=== PATIENT | male | born 1980 | race Caucasian/White ===

== ENCOUNTER 2022-07-02 08:34 | Day surgery (SDC) | payer OTHER ==
[2022-06-26 15:53] LABS: BASOPHILS % (AUTO) 0.5 % (0-1); EOSINOPHILS % (AUTO) 0.3 % (0-6); LYMPHOCYTES # (AUTO) 1.4 X10'3 (1.1-4.8); LYMPHOCYTES % (AUTO) 14.9 % (21-51); MEAN CORPUSCULAR VOLUME 88.7 FL (78-98); MEAN PLATELET VOLUME 7.5 FL (7.4-10.4); MONOCYTES # (AUTO) 0.7 X10'3 (0-0.9); MONOCYTES % (AUTO) 7.7 % (2-12); NEUTROPHILS # (AUTO) 7.1 X10'3 (1.8-7.7); NEUTROPHILS % (AUTO) 76.6 % (42-75); PRE OP HEMATOCRIT 45.4 % (42.0-52.0); PRE OP HEMOGLOBIN 15.9 g/dL (14.0-17.9); PRE OP PLATELET COUNT 233 X10'3 (140-440); RED BLOOD COUNT 5.12 X10'6 (4.70-6.10); RED CELL DISTRIBUTION WIDTH 13.1 % (11.5-14.5)
[2022-06-26 16:22] LABS: ALBUMIN 4.4 G/DL (3.4-5.0); ALBUMIN/GLOBULIN RATIO 1.5 (1.1-1.5); ALKALINE PHOSPHATASE 52 IU/L (46-116); BLOOD UREA NITROGEN 17 MG/DL (7-18); BUN/CREATININE RATIO 12.1 (5.4-32.0); CHLORIDE 105 MMOL/L (99-107); PRE OP ALT 52 U/L (30-65); PRE OP ANION GAP 6 (8-16); PRE OP AST 18 U/L (10-37); PRE OP BILIRUB, TOTAL 0.6 MG/DL (0.0-1.0); PRE OP GLUCOSE 101 MG/DL (70-104); PRE OP SODIUM 139 MMOL/L (135-145); TOTAL PROTEIN 7.4 G/DL (6.4-8.2); eGFR 56 ML/MIN
[~2022-07-02] VITALS: Ht 188 cm; Wt 81.2 kg
[2022-07-02] VITALS (9 sets, daily range): BP systolic 129–143; BP diastolic 79–98
[~2022-07-02 08:34] MED LIST: NO HOME MEDS; ceFAZolin inj. 2,000 MG in dextrose 5%-water 100 ML IV ONE; famotidine 20mg tablet PO ONE; ringers solution, lacted 1,000 ML IV SCH
[2022-07-02] MEDS ORDERED: LIDOcaine 1% 30ml preserv. free vial ONE (11:10)
[2022-07-02] MEDS ORDERED: BUPIVAcaine 0.5% inj/PF 30 ML ONE (11:10)
[2022-07-02] MEDS ORDERED: labetalol 20mg/4ml (5mg/ml) syringe IV PRN (11:20)
[2022-07-02] MEDS ORDERED: ringers solution, lacted 1,000 ML IV SCH (11:20)
[2022-07-02] MEDS ORDERED: acetaminophen 1,000mg/100ml IV 100 ML IV PRN (11:20)
[2022-07-02] MEDS ORDERED: proCHLORperazine 10 MG/2 ml inj IV PRN (11:20)
[2022-07-02] MEDS ORDERED: ondansetron/PF 4mg/2ml inj IV PRN (11:20)
[2022-07-02] MEDS ORDERED: morphine 4 MG/ML inj SYRINge IV PRN (11:20)
[2022-07-02] MEDS ORDERED: meperidine/PF 25mg/ml syringe IV PRN ×3 (11:20)
[2022-07-02] MEDS ORDERED: hydrALAZINE 20mg/ml inj. IV PRN (11:20)
[2022-07-02] MEDS ORDERED: morphine 2 MG/ML inj. syringe IV PRN (11:20)
[2022-07-02] MEDS ORDERED: sevoflurane 250ml liquid IH ONE (11:21)
[2022-07-02] MEDS ORDERED: midazolam 1 mg/ML 2ml injection ONE (11:28)
[2022-07-02] MEDS ORDERED: BUPIVAcaine 0.5% inj/PF 30 ml vial IJ ONE (11:47)
[2022-07-02] MEDS ORDERED: fentaNYL /PF 50mcg/ml 5ml ampule ONE (11:53)
[2022-07-02] MEDS ORDERED: ondansetron/PF 4mg/2ml inj ONE (11:54)
[2022-07-02] MEDS ORDERED: dexamethasone sod phosphate 4mg/ml inj. ONE (11:54)
[2022-07-02] MEDS ORDERED: rocuronium 10mg/ml inj IV ONE (11:54)
[2022-07-02] MEDS ORDERED: LIDOcaine 2% (20mg/ml) 5ml vial ONE (11:54)
[2022-07-02] MEDS ORDERED: propofol inj 20 ML IV ONE (11:57)
[2022-07-02] MEDS ORDERED: glycopyrrolate 0.2mg/ml inj ONE (12:25)
[2022-07-02] MEDS ORDERED: neostigmine methylsulfate 1 MG/ML 10ml vial ONE (12:25)
--- NOTE | 2022-07-02 12:40 | NUR ---
Received from OR via BED, accompanied by Anesthesiologist and report given by Anesthesiologist. PATIENT WAKING UP, NO S/S OF PAIN, V/S WNL, SCD ON, 20G TO RUE, ABDOMEN LAP SITE CLEAN W/ NO S/S OF COMPLICATIONS
[2022-07-02] MEDS ORDERED: HYDROcodone/acetaminophen 5mg/325mg tablet PO PRN (12:55)
--- NOTE | 2022-07-02 13:40 | NUR ---
PATIENT A&OX4, DENIES PAIN, V/S WNL, SCD OFF, 20G TO RUE D/C, ABDOMEN LAP SITE CLEAN W/ NO S/S OF COMPLICATIONS. . I HAVE REVIEWED D/C INSTRUCTIONS WITH PATIENT and they have verbalized understanding patient d/c home with all belongings and family gave transport home.
== END 2022-07-02 13:40 | disposition home or self-care (01) ==
LOC: PAS 08:34
PROVIDERS: ATTEND Surgery
DX: K40.30 Unilateral inguinal hernia, with obstruction, without gangrene, not specified as recurrent (principal); Z87.891 Personal history of nicotine dependence; Z72.89 Other problems related to lifestyle; F12.90 Cannabis use, unspecified, uncomplicated; Z98.890 Other specified postprocedural states; Z79.899 Other long term (current) drug therapy
CPT/HCPCS: 36415; 49650; 80053; 82948; 85025; 93005; C1781; J0690; J1100; J2250; J2405; J2704; J2710; J3010; J3490; J7030; J7060; J7120; S0020; S2900; Z7506; Z7508; Z7512; A4215; A4618